=== PATIENT | female | born 1990 | race African-American/Black ===

== ENCOUNTER 2016-10-02 20:00 | Emergency (ER) | payer MEDICAID, OTHER ==
[2016-10-02 20:10] VITALS: BP 127/89; PULSE 104; RESP 14; TEMP 98.4; O2SAT 100
--- NOTE | 2016-10-02 20:29 | EDPHY ---
H & P Stated Complaint: SOB Time Seen by Provider: 10/02/16 20:28 - Personal History Current Tetanus/Diphtheria Vaccine: Unsure Tetanus Vaccine Date: 2010 - Medical/Surgical History Hx Asthma: Yes Hx Chronic Respiratory Disease: No Hx Diabetes: No Hx Cardiac Disease: No Hx Renal Disease: No Hx Cirrhosis: No Hx Alcoholism: No Hx HIV/AIDS: No Hx Splenectomy or Spleen Trauma: No Other PMH: HAS IMPLANT IN HER ARM FOR CONTROL. DEPRESSION. ANXIETY. NECK PAIN - Social History Smoking Status: Former smoker Constitutional: Initial Vital Signs Temperature (C) 36.9 C 10/02/16 20:09 Heart Rate 104 H 10/02/16 20:09 Respiratory Rate 14 10/02/16 20:09 Blood Pressure 127/89 H 10/02/16 20:09 O2 Sat (%) 100 10/02/16 20:09 O2 Delivery Mode Room Air Allergies/Adverse Reactions: aspirin Allergy (Verified 09/11/14 18:31) oxycodone Allergy (Verified 09/11/14 18:31) venlafaxine HCl [From Effexor] Allergy (Verified 09/11/14 18:31) Home Medications: Medication Instructions Recorded Abilify 09/11/14 GABAPENTIN 09/11/14 Hydrocodone/APAP 5/325 [[place] 1 - 2 each PO Q6 PRN #11 tab 09/11/14 5/325] KLONOPIN 09/11/14 Melanex 09/11/14 Tylenol 325mg (OTC) 09/11/14 Albuterol [Proventil Inhaler] 1 - 2 puffs IH Q4 #1 mdi 10/02/16 Medical Decision Making ED Course/Re-evaluation: CHIEF COMPLAINT: Asthma exacerbation. HISTORY OF PRESENT ILLNESS: The patient is a 26 y/o female, with a history of asthma, complaining of shortness of breath onset today. She says she's been ill recently with some GI symptoms, but denies cough, chest pain, rhinorrhea, sore throat, or fever. Her asthma is often triggered by seasonal allergies, which she thinks is the case today. She reports she is out of her inhalers. She is minimally contributory during assessment. REVIEW OF SYSTEMS: A 10 point review of systems was performed and is negative with the exception of the elements mentioned in the history of present illness. PHYSICAL EXAM: HR, BP, O2 Sat, RR. Temp noted General Appearance: Alert, well hydrated, appropriate, and non-toxic appearing. Head: Atraumatic without scalp tenderness or obvious injury Eyes: Pupils equal, round, reactive to light and accommodation, EOMI, no trauma , no injection. Nose: Atraumatic, no rhinorrhea, clear. Throat: There is no erythema or exudates, no lesions, normal tonsils, mucus membranes moist. Neck: Supple, nontender, no lymphadenopathy. Respiratory: No retractions, no distress, no wheezes, and no accessory muscle use. Lungs are clear to auscultation bilaterally. Cardiovascular: Regular rate and rhythm, no murmurs, rubs, or gallops. Good capillary refill all extremities. Gastrointestinal: Abdomen is soft, nontender, non-distended, no masses, no rebound, no guarding, no peritoneal signs. Musculoskeletal: Normal active ROM of all extremities, atraumatic. Neurological: Alert, appropriate, and interactive. Nonfocal neuro exam. Skin: No rashes, good turgor, no nodules on palpation. Past medical history: Asthma, anxiety Past surgical history: denies Family history: noncontributory Social history: Lives in [place]. DIFFERENTIAL DIAGNOSIS: The differential diagnosis for the patient's shortness of breath and hypoxemia included but was not limited to pneumonia, myocardial infarction, acute mountain sickness, high altitude pulmonary edema, congestive heart failure, and pulmonary embolus. MEDICAL DECISION MAKING: This is a 26 y/o female with a history of asthma complaining of shortness of breath onset today. She is quite reluctant to speak with me and discuss her complaint or history. Her lungs are completely clear. She is afebrile and not hypoxemia. Plan for duo neb and 40mg PO Prednisone here. She will be discharged with albuterol inhaler refill for her asthma. Return precautions given. Departure - Departure Disposition: Home, Routine, Self-Care Clinical Impression: Exacerbation of asthma Condition: Good Instructions: Asthma (ED) Additional Instructions: 1. Use albuterol inhaler as prescribed when needed for shortness of breath. 2. Follow up with your primary care provider for unimproved symptoms over the next 1-2 days. 3. Return to the ED for worsening of condition. Referrals: Patient,NotPresent [Primary Care Provider] - As per Instructions [facility],. [Clinic] - As per Instructions Prescriptions: Albuterol [Proventil Inhaler] 1 - 2 puffs IH Q4 #1 mdi Report Scribed for: Prashanth Cintron Report Scribed by: Génesis Aguilar Date of Report: 10/02/16 Time of Report: 20:30
[2016-10-02] MEDS ORDERED: predniSONE 20 MG TAB PO ONE (20:34)
[2016-10-02] MEDS ORDERED: IPRATROPIUM/ALBUTEROL 3 ML DEYVIAL IH ONE (20:34)
[2016-10-02] MEDS ORDERED: ALBUTEROL INH PREPACK MDI TAKEHOME ONE (20:36)
== END 2016-10-02 21:05 | disposition home or self-care (01) ==
LOC: EDUNIT#
DX: J45.901 Unspecified asthma with (acute) exacerbation (principal); Z87.891 Personal history of nicotine dependence

== ENCOUNTER 2016-11-21 19:11 | Emergency (ER) | payer SELFPAY ==
[2016-11-21 19:22] VITALS: TEMP 98.2; O2SAT 97
--- NOTE | 2016-11-21 19:36 | EDPHY ---
H & P Stated Complaint: cp,anxiety, sob x 2 days HPI/ROS: CHIEF COMPLAINT: Chest pain. HISTORY OF PRESENT ILLNESS: The patient is a 26-year-old female who presents with dull left-sided chest pain for the past 2 days, worsening since onset. The pain is intermittent and lasts 2-3 hours at a time. She denies alleviating or provoking factors. She denies cough, fever, nausea, recent sickness, or other complaints. She did fall 5 days ago but does not believe she struck or hurt her chest. She has not taken anything for the pain. No personal or familial risk factors for heart disease. REVIEW OF SYSTEMS: A ten point review of systems was performed and is negative with the exception of the items mentioned in the HPI. Source: Patient Exam Limitations: No limitations - Personal History LMP (Females 10-55): Extended Cycle BCP/Inj Current Tetanus Diphtheria and Acellular Pertussis (TDAP): Yes Tetanus Vaccine Date: 2010 - Medical/Surgical History Hx Asthma: Yes Hx Chronic Respiratory Disease: No Hx Diabetes: No Hx Cardiac Disease: No Hx Renal Disease: No Hx Cirrhosis: No Hx Alcoholism: No Hx HIV/AIDS: No Hx Splenectomy or Spleen Trauma: No Other PMH: 1. DEPRESSION. 2. ANXIETY. 3. PTSD. 4. PCOS. 5. ASTHMA - Social History Smoking Status: Former smoker Alcohol Use: None Drug Use: None Additional Social History: 1. Nonsmoker. 2. No alcohol use. 3. No drug use. - Physical Exam Exam: General Appearance: Alert. Vital signs reviewed. Eyes: Pupils equal and round, no conjunctival injection, no discharge. Anicteric. ENT, Mouth: Mucous membranes are moist, no oropharyngeal erythema or edema. Neck: No lymphadenopathy, supple. Respiratory: Lungs are clear to auscultation; no wheezes, rales, or rhonchi. Not tachypneic at time of my exam. Cardiovascular: Regular rate and rhythm; no murmur, rub, or gallop. Thorax nontender to palpation. Gastrointestinal: Abdomen is soft and nontender, no masses or organomegaly, bowel sounds normal. Skin: Warm and dry, no rashes on exposed skin, normal color. Back: Nontender to palpation over the thoracolumbar spine. No CVAT. Extremities: No lower extremity edema, no calf tenderness or swelling. Neurological: Alert and oriented. Moving all four extremities easily and equally.. Psychiatric: Normal affect. Constitutional: Initial Vital Signs Temperature (C) 36.8 C 11/21/16 19:19 Heart Rate 87 11/21/16 19:19 Respiratory Rate 22 H 11/21/16 19:19 Blood Pressure 121/87 H 11/21/16 19:19 O2 Sat (%) 97 11/21/16 19:19 O2 Delivery Mode Room Air Allergies/Adverse Reactions: aspirin Allergy (Verified 11/21/16 19:17) oxycodone Allergy (Verified 11/21/16 19:17) venlafaxine HCl [From Effexor] Allergy (Verified 11/21/16 19:17) Home Medications: Medication Instructions Recorded Melanex 09/11/14 Albuterol [Proventil Inhaler] 1 - 2 puffs IH Q4 #1 mdi 10/02/16 Hydroxyzine HCl 11/21/16 Prozac 11/21/16 Medical Decision Making - Diagnostics EKG Interpretation: 12-LEAD EKG: Please see the full report in [facility]. My interpretation: Normal sinus rhythm Imaging: I viewed and interpreted images myself ED Course/Re-evaluation: An IV was established and labs ordered. Chest x-ray, EKG ordered. 1L IV saline administered for hydration along with 4mg IV Zofran for nausea and 600mg PO Motrin for pain. Study: PA and Lateral Chest X-ray Indication: Chest pain Results: I viewed the images myself on the PACS system. My interpretation of the images is: no acute cardiopulmonary disease. The radiologist interpretation is pending at the time of this dictation. Nothing to suggest ischemia or pericarditis on EKG. CXR negative for infiltrate , rib fracture, pneumothorax, cardiomegaly. Infectious process unlikely. Ddimer normal--low risk per Wells scoring for PE and I do not feel further PE evaluation warranted. She is not hypoxic, tachycardic, tachypneic, and her pain is not pleuritic. Calves soft and nontender, no swelling. I reviewed the patient's laboratory studies, which are negative for acute abnormalities. I feel this patient is safe for discharge at this time. I discussed this with her and she is comfortable with the plan. She understands that the etiology of her pain remains undetermined, but no serious or life threatening conditions have been found. - Data Points Medications Given: Discontinued Medications Sodium Chloride (Ns) 1,000 mls @ 0 mls/hr IV ONCE ONE PRN Reason: Wide Open Stop: 11/21/16 19:39 Last Admin: 11/21/16 19:42 Dose: 1,000 mls Ibuprofen (Motrin) 600 mg PO EDNOW ONE Stop: 11/21/16 19:49 Last Admin: 11/21/16 19:49 Dose: 600 mg Ondansetron HCl (Zofran) 4 mg IVP EDNOW ONE Stop: 11/21/16 19:39 Last Admin: 11/21/16 19:42 Dose: 4 mg Departure - Departure Disposition: Home, Routine, Self-Care Clinical Impression: Chest pain, non-cardiac Condition: Good Instructions: Chest Pain (ED) Additional Instructions: Follow up with your primary care provider next week for reevaluation. If you are worse--severe constant pain, cough, trouble breathing--return for another evaluation. Take ibuprofen (any brand) 600 mg every 6-8 hours for the next couple of days-- see if this helps with the pain. Drink plenty of fluids and be sure to get rest. Return for any serious worsening of condition. Referrals: MATA,BELLE [Other] - As per Instructions Report Scribed for: Zaina Frey Report Scribed by: Malcolm Tate Date of Report: 11/21/16 Time of Report: 19:42 Physician Review and Approval Statement: 11/21/16 19:36 Portions of this note were transcribed by the medical scientific liaison. I, Dr. Zaina Frey, personally performed the history, physical exam, and medical decision- making; and confirmed the accuracy of the information in the transcribed note.
[2016-11-21] MEDS ORDERED: ONDANSETRON 4 MG/2 ML VIAL IVP ONE (19:38)
[2016-11-21] MEDS ORDERED: NS 1,000 ML IV ONE (19:38)
[2016-11-21] MEDS ORDERED: IBUPROFEN 600 MG TAB PO ONE (19:48)
--- NOTE | 2016-11-21 19:58 | CPEKG ---
Heart Rate: 84 RR Interval: 714 P-R Interval: 180 QRSD Interval: 68 QT Interval: 376 QTC Interval: 445 P Benkel[place]: 54 QRS Benkelman: 76 T Wave Benkelman: 58 EKG Severity - NORMAL ECG - EKG Impression: SINUS RHYTHM Electronically Signed By: Zaina Frey 22-Nov-2016 00:03:42
[2016-11-21 21:17] VITALS: BP 113/60; PULSE 85; RESP 18
== END 2016-11-21 21:21 | disposition home or self-care (01) ==
DX: R07.89 Other chest pain (principal); J45.909 Unspecified asthma, uncomplicated; Z87.891 Personal history of nicotine dependence
CPT/HCPCS: 96374; J2405